=== PATIENT | female | born 1970 | race Caucasian/White ===

== ENCOUNTER 2017-01-12 13:15 | Emergency (ER) | payer MEDICAID, OTHER ==
[~2017-01-12] VITALS: Ht 167.6 cm; Wt 95.0 kg
[2017-01-12 13:20] VITALS: Ht 167.6 cm; Wt 95.0 kg
[2017-01-12] MEDS ORDERED: ONDANSETRON 4 MG INJ IV STA (13:42)
[2017-01-12] MEDS ORDERED: SOD CHLORIDE 0.9% 1,000 ML IV STA (13:42)
[2017-01-12] MEDS ORDERED: morphine 4 MG/ML VIAL IV STA (13:42)
[2017-01-12 14:12] LABS: ADD SCAN DIFF NO
[2017-01-12 14:14] LABS: BASOPHIL # 0.1 10^3/ul (0.0-0.1); BASOPHILS % 0.9 % (0.0-2.0); EOSINOPHILS # 0.2 10^3/ul (0.0-0.5); EOSINOPHILS % 2.2 % (0.0-7.0); HEMATOCRIT 36.5 % (37.0-47.0); HEMOGLOBIN 12.5 g/dl (12.0-16.0); MEAN CORPUSCULAR HEMOGLOBIN 30.4 pg (29.0-33.0); MEAN CORPUSCULAR HGB CONC 34.2 g/dl (32.0-37.0); MEAN CORPUSCULAR VOLUME 88.8 fl (82.0-101.0); MEAN PLATELET VOLUME 9.9 fl (7.4-10.4); MONOCYTE # 0.4 10^3/ul (0.3-0.9); MONOCYTES % 5.5 % (0.0-11.0); NEUTROPHIL # 4.1 10^3/ul (1.6-7.5); NEUTROPHILS % 52.3 % (39.0-77.0); PLATELET COUNT 338 10^3/UL (140-415); RED BLOOD COUNT 4.11 10^6/ul (4.20-5.40); RED CELL DISTRIBUTION WIDTH 14.7 % (11.5-14.5); WHITE BLOOD COUNT 7.8 10^3/ul (4.8-10.8)
[2017-01-12 14:31] LABS: ADD UMIC YES; ALBUMIN 4.7 g/dl (3.3-4.9); ALBUMIN/GLOBULIN RATIO 1.51; BILIRUBIN,INDIRECT 0.1 mg/dl (0-1.1); BILIRUBIN,TOTAL 0.1 mg/dl (0.2-1.3); CALCIUM 9.1 mg/dl (8.4-10.2); CREATININE 0.76 mg/dl (0.44-1.00); TOTAL PROTEIN 7.8 g/dl (6.1-8.1); UR BILIRUBIN (Dip) NEGATIVE (NEGATIVE); UR BLOOD (Dip) 3+ (NEGATIVE); UR CLARITY CLEAR (CLEAR); UR COLOR YELLOW (YELLOW); UR GLUCOSE (Dip) NEGATIVE (NEGATIVE); UR KETONES (Dip) NEGATIVE (NEGATIVE); UR LEUKOCYTE ESTERASE (Dip) NEGATIVE (NEGATIVE); UR NITRITE (Dip) NEGATIVE (NEGATIVE); UR TOTAL PROTEIN (Dip) NEGATIVE (NEGATIVE); UR UROBILINOGEN (Dip) 0.2 E.U./dL (0.1-1.0)
[2017-01-12 14:52] LABS: UR BACTERIA FEW; UR MUCUS FEW
--- NOTE | 2017-01-12 15:12 | ERD ---
ER Documentation Chief Complaint Date/Time DATE: 01/12/17 TIME: 15:09 Chief Complaint rt lower abd pain with vomiting since yesterday HPI Patient is 46-year-old female presents to the emergency department with severe right lower quadrant pain. Patient states that her pain was initially episodic nature however today it became constant. Patient states her pain is a 10 out of 10. Patient states that she had tactile fevers yesterday. Patient reports nausea and vomiting. She states she has had 3 episodes of nonbloody nonbilious vomiting today. Patient denies any chest pain, shortness of breath, diaphoresis or loss consciousness. Patient states she did have some dysuria last week however it resolved. Patient denies any hematuria or excessive vaginal bleeding.. No recent travel. No sick contacts. ROS All systems reviewed and are negative except as per history of present illness. Medications Home Meds Active Scripts Nitrofurantoin Monohyd Macrocr* (Macrobid*) 100 Mg Capsr, 100 MG PO BID for 5 Days, CAP Prov:CESILIA GOODSON PA-C 01/12/17 Ondansetron (Ondansetron Odt) 4 Mg Tab.rapdis, 4 MG PO Q6H Y for NAUSEA AND/OR VOMITING, #10 TAB Prov:CESILIA GOODSON PA-C 01/12/17 Ibuprofen* (Motrin*) 600 Mg Tab, 600 MG PO Q6, #30 TAB Prov:CESILIA GOODSON PA-C 01/12/17 Allergies Allergies: Coded Allergies: No Known Allergy (Unverified , 01/12/17) PMhx/Soc Medical and Surgical Hx: pt denies Medical Hx, pt denies Surgical Hx Hx Alcohol Use: No Hx Substance Use: No Hx Tobacco Use: No Smoking Status: Never smoker Physical Exam Vitals Vital Signs Date Time Temp Pulse Resp B/P Pulse Ox O2 Delivery O2 Flow Rate FiO2 01/12/17 16:40 98.3 65 18 114/76 98 01/12/17 13:20 98.6 67 18 114/76 98 Physical Exam GENERAL: Well-developed, well-nourished female. Appears in no acute distress. HEAD: Normocephalic, atraumatic. EYES: Pupils are equally reactive bilaterally. EOMs grossly intact. No conjunctival erythema. ENT: Moist mucous membranes. No uvula deviation. No kissing tonsils. NECK: Supple. No meningismus. Normal range of motion of the neck. LUNG: Clear to auscultation bilaterally. No rhonchi, wheezing, rales or coarse breath sounds. HEART: Regular rate and rhythm. No murmurs, rubs or gallops. ABDOMEN: No scars, ecchymosis or rashes noted. Soft, nondistended. Tender to palpation bilateral lower quadrants. Positive bowel sounds in all four quadrants. No rebound tenderness, no guarding. (-) McBurney's point tenderness. No CVA tenderness. BACK: No midline tenderness. EXTREMITIES: Equal pulses bilaterally. No peripheral clubbing, cyanosis or edema. No unilateral leg swelling. NEUROLOGIC: Alert and oriented. Moving all four extremities without any difficulty. Normal speech. Steady gait. SKIN: Normal color. Warm and dry. No rashes or lesions. Result Diagram: 01/12/17 1400 01/12/17 1400 Results 24 hrs Laboratory Tests Test 01/12/17 14:00 White Blood Count 7.810^3/ul Red Blood Count 4.1110^6/ul Hemoglobin 12.5g/dl Hematocrit 36.5% Mean Corpuscular Volume 88.8fl Mean Corpuscular Hemoglobin 30.4pg Mean Corpuscular Hemoglobin Concent 34.2g/dl Red Cell Distribution Width 14.7% Platelet Count 35505^3/UL Mean Platelet Volume 9.9fl Neutrophils % 52.3% Lymphocytes % 39.0% Monocytes % 5.5% Eosinophils % 2.2% Basophils % 0.9% Nucleated Red Blood Cells % 0.0/100WBC Neutrophils # 4.110^3/ul Lymphocytes # 3.010^3/ul Monocytes # 0.410^3/ul Eosinophils # 0.210^3/ul Basophils # 0.110^3/ul Nucleated Red Blood Cells # 0.010^3/ul Urine Color YELLOW Urine Clarity CLEAR Urine pH 5.5 Urine Specific [place] >=1.030 Urine Ketones NEGATIVE Urine Nitrite NEGATIVE Urine Bilirubin NEGATIVE Urine Urobilinogen 0.2 E.U./dL Urine Leukocyte Esterase NEGATIVE Urine Microscopic RBC 5-10/HPF Urine Microscopic WBC 2-5/HPF Urine Epithelial Cells FEW Urine Bacteria FEW Urine Mucus FEW Urine Hemoglobin 3+ Urine Glucose NEGATIVE% Urine Total Protein NEGATIVE Sodium Level 143mmol/L Potassium Level 4.0mmol/L Chloride Level 110mmol/L Carbon Dioxide Level 25mmol/L Anion Gap 12 Blood Urea Nitrogen 16mg/dl Creatinine 0.76mg/dl Glucose Level 101mg/dl Calcium Level 9.1mg/dl Total Bilirubin 0.1mg/dl Direct Bilirubin 0.00mg/dl Indirect Bilirubin 0.1mg/dl Aspartate Amino Transf (AST/SGOT) 22IU/L Alanine Aminotransferase (ALT/SGPT) 29IU/L Alkaline Phosphatase 93IU/L Total Protein 7.8g/dl Albumin 4.7g/dl Globulin 3.10g/dl Albumin/Globulin Ratio 1.51 Lipase 50U/L Current Medications Medications (Trade) Dose Ordered Sig/Germania Route PRN Reason Start Time Stop Time Status Last Admin Dose Admin Sodium Chloride (NS) 1,000 ml @ 1,000 mls/hr Q1H STAT IV 01/12/17 13:42 01/12/17 14:41 DC 01/12/17 13:59 Morphine Sulfate (morphine) 4 mg ONCE STAT IV 01/12/17 13:42 01/12/17 13:44 DC 01/12/17 13:59 Ondansetron HCl (Zofran Inj) 4 mg ONCE STAT IV 01/12/17 13:42 01/12/17 13:44 DC 01/12/17 13:58 Procedures/MDM ED COURSE: The patient was stable throughout ED course. I kept the patient and/or family informed of laboratory and diagnostic imaging results throughout the ED course. DIAGNOSTIC IMAGING: Read by radiologist. Patient: ALEXIS HILL : 1970 Age: 46 Sex: F [id number] DOS: 01/12/17 1342 Ordering MD: CESILIA GOODSON PA-C Location: [facility] Room/Bed: PROCEDURE: CT Abdomen and Pelvis without contrast. CLINICAL INDICATION: Right lower quadrant abdominal pain TECHNIQUE: CT scan of the abdomen and pelvis without contrast was performed without intravenous contrast. Coronal and sagittal reformatted images were obtained from the axial source images. Images were reviewed on a high- resolution PACS workstation. CTDI 17 mGy, DLP 1014 mGy-cm One or more of the following dose reduction techniques were used: Automated exposure control Adjustment of the mA and/or kV according to patient size. Use of iterative reconstruction technique. COMPARISON: None. FINDINGS: There is mild bibasilar atelectasis. The heart size is normal. The aorta and its branches are normal in size and caliber. The kidneys are symmetric in size and density. There is no perinephric fat stranding. There is no nephroureterolithiasis or hydronephrosis. The ureters are normal in course and caliber. Evaluation of solid organs is limited due to the lack of intravenous contrast. However, the liver, gallbladder, spleen, pancreas, and adrenal glands are unremarkable. Evaluation of the gastrointestinal tract is limited due to the lack of oral contrast. The distal esophagus is slightly patulous. The stomach is mildly distended and grossly unremarkable. The small bowel loops are normal in caliber without evidence of small bowel obstruction. The appendix is visualized , and is normal. There is no free intraperitoneal fluid or pneumoperitoneum. There is no mesenteric, retroperitoneal, or pelvic lymphadenopathy. The bladder is mildly distended, but grossly unremarkable. The uterus and adnexa are unremarkable. There is no pelvic free fluid. Multilevel degenerative disk disease with Schmorl's nodes are noted throughout the thoracolumbar spine. There is severe disk space narrowing with disk osteophytes at L5-S1. There is severe facet arthropathy at L4-L5 with minimal anterolisthesis. There are mild degenerative changes within both hips. A small os acetabuli is noted on the left. The abdominal pelvic smith are unremarkable. RPTAT: ZZ IMPRESSION: 1. No acute intra-abdominal abnormality. No mass, lymphadenopathy, or focal acute inflammatory process is identified. 2. Multilevel degenerative disk disease with Schmorl's nodes throughout the thoracolumbar spine in which the disk disease is more prominent at L5-S1. Severe facet arthropathy at L4-L5. .Dang Shepard MD, Date Time Electronically viewed and signed by .Dang Shepard MD, on 01/12/2017 15: 54 .T/ CC: CESILIA GOODSON PA-C MEDICATIONS GIVEN: IV fluids, Zofran, morphine Patient tolerated medication well with no adverse reactions. MEDICAL DECISION MAKING: This is a 46-year-old female who presents with right lower quadrant pain 3 days. Patient states her pain is getting worse. Patient reports nausea and vomiting.. Vital signs were reviewed. Patient is afebrile. CBC showed no evidence of systemic infection or severe anemia. CMP showed no evidence of electrolyte abnormalities, severe acidosis, alkalosis, renal failure, or liver disease. Lipase showed no evidence of acute pancreatitis. Urinalysis showed 3+ hemoglobin, 2-5 WBCs. Urine test was negative. CT abdomen pelvis without IV contrast showed Multilevel degenerative disk disease. No mass, lymphadenopathy, or acute inflammatory process was identified. At this time, patient's presentation is most consistent with UTI and multilevel degenerative disc disease. I have a much lower clinical concern for acute coronary syndrome, AAA, mesenteric ischemia, lower lobe pneumonia, DKA, bowel perforation, bowel obstruction, cholecystitis, choledocholithiasis, pancreatitis, PUD, gastritis, GERD, splenic rupture, diverticulitis, nephrolithiasis, appendicitis, constipation, , ectopic , PID, ovarian torsion or tubo- ovarian abscess. PRESCRIPTIONS: Ibuprofen, Zofran DISCHARGE: At this time, patient is stable for discharge and outpatient management. I have instructed the patient to follow-up with his/her primary care physician in 1-2 days. I have instructed the patient to promptly return to the ER at any time for any new or worsening symptoms including increased pain, nausea, vomiting, diarrhea, fever, weakness or LOC. The patient and/or family expressed understanding of and agreement with this plan. All questions were answered. Home care instructions were provided. Departure Diagnosis: Primary Impression: Abdominal pain Abdominal location: unspecified location Qualified Code: R10.9 - Abdominal pain, unspecified location Additional Impressions: Degenerative disc disease Spinal region: lumbar Qualified Code: M51.36 - Degeneration of intervertebral disc of lumbar region UTI (urinary tract infection) Urinary tract infection type: site unspecified Hematuria presence: with hematuria Qualified Code: N39.0 - Urinary tract infection with hematuria, site unspecified Condition: Stable Patient Instructions: Abdominal Pain, Understanding Urinary Tract Infections ( UTIs) Referrals: REINA ARIAS MD, NAGARAJ M MD GORDON, RICHARD K MD LOBEL,[place] Arthur MD Additional Instructions: Call your primary care doctor TOMORROW for an appointment during the next 1-2 days.See the doctor sooner or return here if your condition worsens before your appointment time. Follow up with GI specialist. See referral information. CESILIA GOODSON PA-C Jan 12, 2017 15:12
--- NOTE | 2017-01-12 15:55 | RADRPT ---
PROCEDURE: CT Abdomen and Pelvis without contrast. CLINICAL INDICATION: Right lower quadrant abdominal pain TECHNIQUE: CT scan of the abdomen and pelvis without contrast was performed without intravenous co ntrast. Coronal and sagittal reformatted images were obtained from the axial source images. Images were reviewed on a high-resolution PACS workstation. CTDI 17 mGy, DLP 1014 mGy-cm One or more of the following dose reduction techniques were used: Automated exposure control Adjustment of the mA and/or kV according to patient size. Use of iterative reconstruction technique. COMPARISON: None. FINDINGS: There is mild bibasilar atelectasis. The heart size is normal. The aorta and its branches are normal in size and caliber. The kidneys are symmetric in size and density. There is no perinephric fat stranding. There is no ne phroureterolithiasis or hydronephrosis. The ureters are normal in course and caliber. Evaluation of solid organs is limited due to the lack of intravenous contrast. However, the liver, g allbladder, spleen, pancreas, and adrenal glands are unremarkable. Evaluation of the gastrointestinal tract is limited due to the lack of oral contrast. The distal es ophagus is slightly patulous. The stomach is mildly distended and grossly unremarkable. The small bowel loops are normal in caliber without evidence of small bowel obstruction. The appendix is visu alized, and is normal. There is no free intraperitoneal fluid or pneumoperitoneum. There is no mesenteric, retroperitoneal, or pelvic lymphadenopathy. The bladder is mildly distended, but grossly unremarkable. The uterus and adnexa are unremarkable. There is no pelvic free fluid. Multilevel degenerative disk disease with Schmorl's nodes are noted throughout the thoracolumbar spi ne. There is severe disk space narrowing with disk osteophytes at L5-S1. There is severe facet art hropathy at L4-L5 with minimal anterolisthesis. There are mild degenerative changes within both hip s. A small os acetabuli is noted on the left. The abdominal pelvic smith are unremarkable. RPTAT: ZZ IMPRESSION: 1. No acute intra-abdominal abnormality. No mass, lymphadenopathy, or focal acute inflammatory pro cess is identified. 2. Multilevel degenerative disk disease with Schmorl's nodes throughout the thoracolumbar spine in which the disk disease is more prominent at L5-S1. Severe facet arthropathy at L4-L5. .Dang Shepard MD, MD Date Time Electronically viewed and signed by .Dang Shepard MD, MD on 01/12/2017 15:54 .T/
[2017-01-12] MEDS ORDERED: IBUP-1542 PO (16:14)
[2017-01-12] MEDS ORDERED: ONDA4TAB14 PO (16:16)
[2017-01-12] MEDS ORDERED: NITR-58 PO (16:18)
[2017-01-12 16:40] VITALS: BP 114/76; PULSE 65; RESP 18; TEMP 98.3
== END 2017-01-12 16:40 | disposition home or self-care (01) ==
LOC: FTE 13:15
DX: R10.31 Right lower quadrant pain (principal); R10.32 Left lower quadrant pain; M51.36 Other intervertebral disc degeneration, lumbar region; N39.0 Urinary tract infection, site not specified; R11.2 Nausea with vomiting, unspecified; R10.2 Pelvic and perineal pain
CPT/HCPCS: 36415; 74176; 80053; 81001; 83690; 85025; 96361; 96374; 96375; J2270; J2405; J7030; Z7502

== ENCOUNTER 2018-12-04 14:38 | Emergency (ER) | payer MEDICAID, OTHER ==
[~2018-12-04] VITALS: Ht 167.6 cm; Wt 100.6 kg
[~2018-12-04 14:38] MED LIST: IBUP-1542 PO; NITR-58 PO; ONDA4TAB14 PO
[2018-12-04 14:43] VITALS: Ht 167.6 cm; Wt 100.6 kg
[2018-12-04] MEDS ORDERED: morphine 4 MG/ML VIAL IV STA (16:50)
[2018-12-04] MEDS ORDERED: ONDANSETRON 4 MG INJ IV STA (16:50)
[2018-12-04] MEDS ORDERED: SOD CHLORIDE 0.9% 1,000 ML IV STA (16:50)
[2018-12-04] MEDS ORDERED: SOD CHLORIDE 0.9% 100 ML ONE (18:49)
[2018-12-04] MEDS ORDERED: IOHEXOL 300MG/ML 150 ML BTL ONE (18:49)
--- NOTE | 2018-12-04 19:48 | ERD ---
ER Documentation Chief Complaint Chief Complaint Complains of abdominal pain x 2 days HPI This is a 48-year-old female that presents to the emerge department complaining of abdominal pain. Patient indicates the abdominal pain is localized to the left lower quadrant. She indicates is been persistent for 2 days and progressively worsened. There is no alleviating or exacerbating factors. She said no frequency urgency or dysuria. She is felt nauseous but has not experience any emesis. She denies any blunt or penetrating trauma to the abdomen. The pain does not radiate to the back. She states the pain is 10 out of 10 in intensity. She did not take any analgesic med occasion prior to arrival. She has had no similar symptoms in the past. The patient indicated that she is also experiencing the pain radiating down the lateral aspect of her left leg. She denies any saddle anesthesia. She denies any changes in her bl adder or bowel frequency. She denies any trauma to her lower back. She also denies any back pain. ROS All systems reviewed and are negative except as per history of present illness. Medications Home Meds Discontinued Scripts Nitrofurantoin Monohyd Macrocr* (Macrobid*) 100 Mg Capsr, 100 MG PO BID for 5 Days, CAP Prov:CESILIA GOODSON PA-C 01/12/17 Ondansetron (Ondansetron Odt) 4 Mg Tab.rapdis, 4 MG PO Q6H PRN for NAUSEA AND/OR VOMITING, #10 TAB Prov:CESILIA GOODSON PA-C 01/12/17 Ibuprofen* (Motrin*) 600 Mg Tab, 600 MG PO Q6, #30 TAB Prov:CESILIA GOODSON PA-C 01/12/17 Allergies Allergies: Coded Allergies: diphenhydramine (Verified Allergy, Unknown, 12/04/18) PMhx/Soc History of Surgery: Yes (C SECTION) Hx Alcohol Use: No Hx Substance Use: No Hx Tobacco Use: No Smoking Status: Never smoker Physical Exam Vitals Vital Signs Date Temp Pulse Resp B/P (MAP) Pulse Ox O2 O2 Flow FiO2 Time Delivery Rate 12/04/18 62 16 127/67 100 Room Air 18:30 (87) 12/04/18 67 16 120/71 100 Room Air 17:30 (87) 12/04/18 98.0 55 20 140/68 98 14:43 (92) Physical Exam Went constitutional:Well-developed. Well-nourished. HEENT:Normocephalic. Atraumatic.Pupils were equal round reactive to light. Moist mucous membranes.No tonsillar exudates. Neck: No nuchal rigidity. No lymphadenopathy. No posterior cervical spine tenderness or step-offs. Respiratory: Not using accessory muscles of respiration.Lungs were clear to auscultation bilaterally. No rhonchi. No rales. No wheezing. Cardiovascular: Regular rate regular rhythm.No murmurs. No rubs were appreciated.S1, S2 normal. Distal pulses are palpable 2+ bilaterally. GI: Abdomen was soft. Left lower quadrant tenderness. Non Distended. No pulsatile abdominal masses or bruits. No rebound. No guarding. Bowel sounds were present and normal. Muscle skeletal: Full range of motion of both the upper and lower extremities bilaterally.Normal muscle tone.No assymetrical calf tenderness or swelling. Skin: No petechia, no purpura. No lesions on the palms or the soles of the feet. No maculopapular rash. NEURO: Patient was alert, awake, orientated x3.No facial droop. Gait observed and normal with no ataxia.Speech had regular rate and rhythm. No focal neurological deficit Result Diagram: 12/04/18 1720 12/04/18 1720 Results 24 hrs Laboratory Tests Test 12/04/18 17:15 12/04/18 17:20 Urine Color STRAW Urine Clarity CLEAR Urine pH 7.0 Urine Specific [place] 1.010 Urine Ketones NEGATIVE mg/dL Urine Nitrite NEGATIVE mg/dL Urine Bilirubin NEGATIVE mg/dL Urine Urobilinogen NEGATIVE mg/dL Urine Leukocyte Esterase NEGATIVE Michelle/ul Urine Microscopic RBC 8 /HPF Urine Microscopic WBC 1 /HPF Urine Bacteria FEW /HPF Urine Hemoglobin 2+ mg/dL Urine Glucose NEGATIVE mg/dL Urine Total Protein NEGATIVE mg/dl Urine Test NEGATIVE White Blood Count 7.6 10^3/ul Red Blood Count 4.20 10^6/ul Hemoglobin 12.6 g/dl Hematocrit 37.8 % Mean Corpuscular Volume 90.0 fl Mean Corpuscular Hemoglobin 30.0 pg Mean Corpuscular Hemoglobin Concent 33.3 g/dl Red Cell Distribution Width 14.9 % Platelet Count 329 10^3/UL Mean Platelet Volume 9.6 fl Immature Granulocytes % 0.300 % Neutrophils % 49.7 % Lymphocytes % 38.6 % Monocytes % 8.6 % Eosinophils % 2.0 % Basophils % 0.8 % Nucleated Red Blood Cells % 0.0 /100WBC Immature Granulocytes # 0.020 10^3/ul Neutrophils # 3.8 10^3/ul Lymphocytes # 2.9 10^3/ul Monocytes # 0.7 10^3/ul Eosinophils # 0.2 10^3/ul Basophils # 0.1 10^3/ul Nucleated Red Blood Cells # 0.0 10^3/ul Prothrombin Time 11.9 Sec Prothrombin Time Ratio 0.9 INR International Normalized Ratio 0.87 Activated Partial Thromboplast Time 27.2 Sec Sodium Level 139 mmol/L Potassium Level 3.9 mmol/L Chloride Level 107 mmol/L Carbon Dioxide Level 26 mmol/L Anion Gap 6 Blood Urea Nitrogen 16 mg/dl Creatinine 0.96 mg/dl Est Glomerular Filtrat Rate mL/min > 60 mL/min Glucose Level 98 mg/dl Calcium Level 9.5 mg/dl Total Bilirubin 0.2 mg/dl Direct Bilirubin 0.00 mg/dl Indirect Bilirubin 0.2 mg/dl Aspartate Amino Transf (AST/SGOT) 18 IU/L Alanine Aminotransferase (ALT/SGPT) 14 IU/L Alkaline Phosphatase 113 IU/L Troponin I < 0.012 ng/ml Total Protein 7.6 g/dl Albumin 3.9 g/dl Globulin 3.70 g/dl Albumin/Globulin Ratio 1.05 Amylase Level 67 U/L Lipase 67 U/L Current Medications Medications Dose Sig/Germania Start Time Status Last (Trade) Ordered Route PRN Stop Time Admin Dose Reason Admin Sodium 1,000 ml @ Q1H STAT 12/04/18 DC 12/04/18 Chloride 1,000 mls/hr IV 16:50 12/04/18 17:26 17:49 Morphine 4 mg ONCE STAT 12/04/18 DC 12/04/18 Sulfate IV 16:50 12/04/18 17:26 (morphine) 16:52 Ondansetron 4 mg ONCE STAT 12/04/18 DC 12/04/18 HCl (Zofran IV 16:50 12/04/18 17:26 Inj) 16:52 IV Flush 10 ml STK-MED 12/04/18 DC (NS 10 ml) ONCE .ROUTE 18:49 12/04/18 18:50 Sodium 100 ml @ ud STK-MED 12/04/18 DC Chloride ONCE .ROUTE 18:49 12/04/18 18:50 Iohexol 150 ml STK-MED 12/04/18 DC (Omnipaque ONCE .ROUTE 18:49 12/04/18 300mg/ ml) 18:50 Procedures/MDM This patient presented to the emergency department with abdominal pain and was seen and evaluated by myself. My differential diagnosis included but was not limited to abdominal aortic aneurysm, appendicitis, pancreatitis, perforated peptic ulcer, perforated viscus, Boerhaaves syndrome or visceral pain such as diverticulitis, DKA, esophagitis, hepatitis or bowel obstruction. The patient was placed on a court recording monitor, continuous pulse oximetry, and IV access was established by nursing staff. The patient received IV fluids intravenous morphine and Zofran. There is no evidence of urinary tract infection. I obtained a 12-lead EKG tracing to rule out for atypical microinfarction. 12 Lead EKG tracing ordered and reviewed by myself showed: bpm and no arrhythmia. GA interval normal. QRS duration normal. No ST segment elevation No ST segment depression. No changes consistent with acute ischemia. The patient had no leukocytosis. There is no severe left leg abnormalities. I did feel is necessary to obtain a CT scan of the abdomen with IV contrast due to the localization of the patient's pain as she did develop voluntary guarding. The CT was read by the radiologist and indicate the followin. When compared to the noncontrast CT done earlier, the bowel again appears unremarkable without evidence of obstruction or inflammation. A normal retrocecal vermiform appendix is evident. 2. Very mild hepatomegaly with no focal lesion. The spleen again appears small. 3. The kidneys, ureters, and bladder again appear unremarkable. 4. With a of contrast, a 1.8 cm left adnexal cyst is now identified. 5. There is no free intraperitoneal fluid or air. A small fat containing umbilical hernia is again noted. 6. There is again grade 1 anterolisthesis of L4 and L5 with fairly extensive degenerative facet arthropathy at this level. Degenerative disc changes are noted at L4-L5 and there is mild diffuse degenerative enthesopathy and several Schmorl's nodes are again evident. I reviewed the findings with the patient. I indicated that I felt her symptoms could be exacerbated by sciatica but there is no evidence of cauda equina syndrome on physical exam. The patient had a normal rectal exam with sphincter tone that was normal. She will be sent home with analgesic medication I did indicate she would benefit from an outpatient MRI. The patient had no peritoneal signs at the time of discharge. Her pain had improved. Observation Note: Time: 5 hours Family Hx: No Hypertension Evaluation: Multiple exams showed improving symptoms and no evidence of severe abdominal infection. Departure Diagnosis: Primary Impression: Abdominal pain Additional Impression: Lumbar radiculopathy, acute Condition: Fair ANTHONY YOON MD December 04, 2018 19:48
[2018-12-04] MEDS ORDERED: KETOROLAC 30 MG INJ IV STA (19:58)
[2018-12-04] MEDS ORDERED: CYCL10TA7 PO (20:00)
[2018-12-04] MEDS ORDERED: DIAZEPAM 5 MG TAB PO ONE (20:00)
[2018-12-04] MEDS ORDERED: HYDR-4011 PO (20:00)
[2018-12-04] MEDS ORDERED: DOCU-144 PO (20:00)
[2018-12-04] MEDS ORDERED: IBUP800T48 PO (20:00)
[2018-12-04 20:30] VITALS: BP 135/94; PULSE 65; RESP 15
== END 2018-12-04 20:30 | disposition home or self-care (01) ==
LOC: E/R 14:38
DX: M54.16 Radiculopathy, lumbar region (principal)
CPT/HCPCS: 74176; 74177; 80053; 81001; 82150; 83690; 84484; 84703; 85025; 85610; 85730; 87086; 93005; 96374; 96375; J1885; J2270; J2405; J7030; Q9967; Z7502; Z7610